=== PATIENT | male | born 1955 | race Caucasian/White ===

== ENCOUNTER 2018-02-22 12:16 | Emergency (ER) | payer MEDICARE ==
--- NOTE | 2018-02-22 13:22 | EDM.PDOC ---
ED HPI GENERAL MEDICAL PROBLEM - General Chief Complaint: Upper Extremity Injury/Pain Stated Complaint: RIGHT RING FINGER SLIVER Time Seen by Provider: 02/22/18 13:00 Source of Information: Reports: Patient History Limitations: Reports: No Limitations - History of Present Illness INITIAL COMMENTS - FREE TEXT/NARRATIVE: Herminio is a 62yo male presents ambulatory to ED today after reaching his hand into his closet to get some cat food, missed the bag and ran his hand/fingers down the wall. He suffered an injury where a sliver went under his nail to his left ring finger. This occurred just prior to arrival. He is unsure of last tetanus vaccine. Onset: Today Location: Reports: Upper Extremity, Left, Upper Extremity, Right Improves with: Reports: None Worsens with: Reports: None Associated Symptoms: Reports: No Other Symptoms Left 4-Ring finger Pain Score (Numeric/FACES): 5 - Related Data Allergies Allergy/AdvReac Type Severity Reaction Status Date / Time No Known Allergies Allergy Verified 02/22/18 12:37 Home Meds: Home Meds . [No Known Home Meds] 02/22/18 [History] Past Medical History Musculoskeletal History: Reports: Other (See Below) Other Musculoskeletal History: right leg foot drop - Past Surgical History Musculoskeletal Surgical History: Reports: None Social & Family History - Tobacco Use Smoking Status *Q: Former Smoker Years of Tobacco use: 7 Packs/Tins Daily: 0.1 Used Tobacco, but Quit: No Second Hand Smoke Exposure: Yes - Caffeine Use Caffeine Use: Reports: Coffee - Recreational Drug Use Recreational Drug Use: No Review of Systems - Review of Systems Review Of Systems: See Below Constitutional: Reports: No Symptoms Respiratory: Reports: No Symptoms Cardiovascular: Reports: No Symptoms GI/Abdominal: Reports: No Symptoms Skin: Reports: Change in Hair/Nails (see HPI, sliver under nail to left ring finger) ED EXAM, GENERAL - Physical Exam Exam: See Below Exam Limited By: No Limitations General Appearance: Alert, WD/WN, No Apparent Distress Eye Exam: Bilateral Eye: EOMI, PERRL Ears: Hearing Grossly Normal Nose: Normal Inspection Throat/Mouth: Normal Inspection, Normal Voice, No Airway Compromise Head: Atraumatic, Normocephalic Neck: Normal Inspection Respiratory/Chest: No Respiratory Distress Cardiovascular: Normal Peripheral Pulses Peripheral Pulses: 2+: Radial (L), Radial (R) Extremities: Other (left hand, ring finger is with dark brown splinter under his nail to medial aspect of nailbed. No other abnormalities, CMS is + distally. ) Neurological: Alert, Oriented, Normal Cognition Psychiatric: Normal Affect, Normal Mood Skin Exam: Warm, Dry, Intact Course - Vital Signs Last Recorded V/S: Last Vital Signs Temp 98.3 F 02/22/18 12:39 Pulse 81 02/22/18 12:39 Resp 15 02/22/18 12:39 BP 139/80 02/22/18 12:39 Pulse Ox 95 02/22/18 12:39 - Orders/Labs/Meds Orders: Active Orders 24 hr Category Date Time Status Vaccines to be Administered [RC] PER UNIT ROUTINE Care 02/22/18 13:26 Active Meds: Medications Discontinued Medications Generic Name Dose Route Start Last Admin Trade Name Freq PRN Reason Stop Dose Admin Diphtheria/Tetanus/Acell Pertussis 0.5 ml 02/22/18 13:26 02/22/18 13:29 Adacel IM 02/22/18 13:27 0.5 ml .ONCE ONE Administration - Re-Assessments/Exams Free Text/Narrative Re-Assessment/Exam: 02/22/18 13:17 Offered warm epsom salt soak prior to dc patient states he needs to leave and will do it at home. Departure - Departure Time of Disposition: 13:17 Disposition: Home, Self-Care 01 Condition: Good Clinical Impression: Subungual sliver of finger Qualifiers: Encounter type: initial encounter Qualified Code(s): S60.459A - Superficial foreign body of unspecified finger, initial encounter - Discharge Information Instructions: Sliver Removal, Care After Referrals: Jocelyn Bangura NP [Primary Care Provider] - Forms: ED Department Discharge Additional Instructions: Recommend warm epsom salt soaks 4 times per day 20 minute sessions. Do not poke anything under fingernail. Monitor for signs of infection, redness, red streaks, yellow/green discharge, swelling-- if develop need to be seen with Primary Care Provider, Walk-In Clinic or back to ER Keep finger clean and dry, if working outside cover wound/finger Tetanus shot recommended today. Follow up with Primary Care Provider if needed middle of the week; can return to ER if needed for ?'s or concerns. - My Orders Last 24 Hours: My Active Orders 02/22/18 13:26 Vaccines to be Administered [RC] PER UNIT ROUTINE - Assessment/Plan Last 24 Hours: My Active Orders 02/22/18 13:26 Vaccines to be Administered [RC] PER UNIT ROUTINE
[2018-02-22] MEDS ORDERED: Diphtheria,Pertussis(Acell),Tetanus Vaccine 0.5 ML SDV IM ONE (13:26)
== END 2018-02-22 13:35 | disposition home or self-care (01) ==
LOC: JD.ED 12:16
DX: S60.455A Superficial foreign body of left ring finger, initial encounter (principal); Z87.891 Personal history of nicotine dependence; Z23 Encounter for immunization; W45.8XXA Other foreign body or object entering through skin, initial encounter
CPT/HCPCS: 90471; 90715; 99283; 99283-25